=== PATIENT | female | born 1990 | race Two or more races ===

== ENCOUNTER 2021-06-08 12:15 | Inpatient (IN) | payer OTHER ==
[~2021-06-08] VITALS: Ht 154.9 cm; Wt 72.6 kg
[2021-06-20] MEDS ORDERED: PRENATAL TABLE1 EAC1 PO (11:12)
[2021-06-20] MEDS ORDERED: IRON325 MG PO (11:13)
[2021-06-20] MEDS ORDERED: DIALYVITE 800-1 EACH PO (11:13)
== END 2021-06-22 13:56 | disposition home or self-care (01) | DRG 807 ==
LOC: LDR 06-20 10:36 → OB/GYN 06-20 10:36 → SURH 06-22 12:15 → OB/GYN 06-22 13:56
PROVIDERS: ADMIT Obstetrics & Gynecology; ATTEND Obstetrics & Gynecology
PROC: 10E0XZZ Delivery of Products of Conception, External Approach (ICD-10-PCS; principal; 2021-06-20)
PROC: 4A1HXFZ Monitoring of Products of Conception, Cardiac Rhythm, External Approach (ICD-10-PCS; 2021-06-20)
PROC: 10907ZC Drainage of Amniotic Fluid, Therapeutic from Products of Conception, Via Natural or Artificial Opening (ICD-10-PCS; 2021-06-20)
DX: O80 Encounter for full-term uncomplicated delivery (principal); Z37.0 Single live birth; Z3A.39 39 weeks gestation of pregnancy